=== PATIENT | female | born 1990 | race Native Hawaiian/Other Pacific Islander ===

== ENCOUNTER 2021-05-08 20:47 | Emergency (ER) | payer OTHER ==
[2021-05-08 21:49] VITALS: BP 109/74; PULSE 80; RESP 16; TEMP 97.9
[2021-05-08] MEDS ORDERED: KETOROLAC 30 MG/ML 1 ML VIAL IM STA (22:35)
[2021-05-08] MEDS ORDERED: ORPHENADRINE 30 MG/ML 2 ML VIAL IM STA (22:36)
--- NOTE | 2021-05-08 22:42 | ED ---
General Adult HPI - General Chief complaint: Back Pain/Injury Stated complaint: Lower back, Cant walk Time Seen by Provider: 05/08/21 22:21 Source: patient, RN notes reviewed Mode of arrival: ambulatory Limitations: no limitations - History of Present Illness Initial comments: This is a 31-year-old well-appearing well-nourished female that presents to the emergency room with complaints of low back pain that radiates down her left leg. Patient states that she suffered a slip and fall at work back in 2007 and she had sought physical therapy. She did not have any fractures at that time. She states that she worsened her back pain after her hysterectomy in September. Has been seeing a chiropractor once every few months. She states that she went back to the chiropractor last week for worsening low back pain and since Sunday she has had difficulty ambulating complaining of left leg numbness and tingling with burning shooting pain down the left leg. She states that at times it shoots up into her back up to her neck. She denies any injuries or falls. She denies any fevers. She denies any bowel or bladder incontinence -: days(s) (5) Location: back (lower), left, lower extremity Severity scale (1-10): 8 Quality: burning, sharp, constant, other (numbness and tingling) Consistency: constant Improves with: none Worsens with: movement Associated Symptoms: denies other symptoms Treatments Prior to Arrival: other (tylenol , chiropractor) - Related Data Home Medications Medication Instructions Recorded Confirmed Vit No.124/Iron/Folic 1 each PO DAILY 10/07/14 10/07/14 [ Vitamin Tablet] Previous Rx's Medication Instructions Recorded Acetaminophen-Codeine 300-30mg 2 each PO Q4HR PRN #30 tab 03/28/15 [Tylenol w/codeine #3] Ibuprofen [Motrin] 600 mg PO Q6HR PRN #30 tab 03/28/15 Cyclobenzaprine [Flexeril] 10 mg PO TID 7 Days #21 tab 05/08/21 Ibuprofen [Motrin] 600 mg PO Q8HR PRN #30 tab 05/08/21 Allergies Allergy/AdvReac Type Severity Reaction Status Date / Time latex AdvReac Rash/Hives Verified 05/08/21 21:46 Review of Systems ROS Statement: Those systems with pertinent positive or pertinent negative responses have been documented in the HPI. ROS Other: All systems not noted in ROS Statement are negative. Past Medical History Past Medical History: No Reported History Additional Past Medical History / Comment(s): Obstetric history: First was a vaginal delivery, 6#11oz at 39 weeks. This is her second and she has had care with me since 8 weeks. O+, abs neg, RUb Imm, RPR NR, Hep B neg, toxo neg, HIV NR. normal anatomy US. normal 1hr GTT, and neg GBS. History of Any Multi-Drug Resistant Organisms: None Reported Past Surgical History: Cholecystectomy, Hysterectomy Additional Past Surgical History / Comment(s): [place] teeth Past Anesthesia/Blood Transfusion Reactions: No Reported Reaction Past Psychological History: No Psychological Hx Reported Smoking Status: Never smoker Past Alcohol Use History: None Reported Past Drug Use History: None Reported - Past Family History Mother Family Medical History: No Reported History Additional Family Medical History / Comment(s): pt has no knowledge of family history General Exam Limitations: no limitations General appearance: alert, in no apparent distress Head exam: Present: atraumatic, normocephalic, normal inspection Eye exam: Present: normal appearance, EOMI ENT exam: Present: normal exam, normal oropharynx, mucous membranes moist Neck exam: Present: normal inspection, full ROM. Absent: tenderness, meningismus, lymphadenopathy Respiratory exam: Present: normal lung sounds bilaterally. Absent: respiratory distress, wheezes, rales, rhonchi, stridor Cardiovascular Exam: Present: regular rate, normal rhythm, normal heart sounds. Absent: systolic murmur, diastolic murmur, rubs, gallop, clicks GI/Abdominal exam: Present: soft, normal bowel sounds. Absent: distended, tenderness, guarding, rebound, rigid Extremities exam: Present: normal inspection, normal capillary refill. Absent: tenderness, pedal edema, joint swelling, calf tenderness Left Hip exam: Present: tenderness. Absent: full ROM, swelling, laceration, ecchymosis, erythema, external rotation, internal rotation Knee exam: Present: normal inspection, full knee extension (Held in flexion for position of comfort). Absent: tenderness, swelling, deformity, erythema, effusion Lower Leg exam: Present: normal inspection. Absent: tenderness Ankle exam: Absent: tenderness Foot/Toe exam: Absent: tenderness Neurovascular tendon exam: Absent: no vascular compromise, abnormal cap refill, extremity cold to touch, pallor, foot drop Gait: observed and limited by pain Back exam: Present: normal inspection, tenderness (Left lower back). Absent: CVA tenderness (R), CVA tenderness (L), paraspinal tenderness, vertebral tenderness, rash noted Expanded Back exam: Absent: saddle anesthesia Back exam: Positive Straight Leg Raise: Left, Right Neurological exam: Present: alert, oriented X3 Psychiatric exam: Present: normal affect, normal mood Skin exam: Present: warm, dry, intact, normal color. Absent: rash, cyanosis, diaphoretic Course Vital Signs 05/08/21 21:46 Temperature 97.9 F Pulse Rate 80 Respiratory 16 Rate Blood Pressure 109/74 O2 Sat by Pulse 98 Oximetry Medical Decision Making - Medical Decision Making Well-appearing 31-year-old female presents to the emergency room with chronic back pain. Patient states that she has had chronic back pain since 2007 after a slip and fall at work. She has received physical therapy in the past. She states that he went to her chiropractor last week from manipulation and has since gotten worse. She states she drove herself to the emergency room today. She was able to ambulate to the bathroom to provide a urine specimen. Urinalysis clear infection. Patient has history of hysterectomy in September 2020. X-ray of the lumbar sacral spine shows normal spacing of the lumbar vertebra, no compression fractures, sacral iliac joints are intact. This is a normal lumbar spine exam. She denies any saddle anesthesia or incontinence of bowel or bladder. She does not have a fever, no history of cancer, denies any illicit drug use. She is nontoxic appearing. This is likely musculoskeletal pain. She was given Toradol and Norflex in the emergency room and prescribed Motrin and Flexeril for home. She is directed to follow up with her primary care doctor this week. Return to emergency room with any new or worsening symptoms. Case discussed with Dr. Campbell - Lab Data Lab Results 05/08/21 Range/Units 22:49 Urine Color Yellow Urine Appearance Clear (Clear) Urine pH 7.0 (5.0-8.0) Ur Specific [place] 1.019 (1.001-1.035) Urine Protein Negative (Negative) Urine Glucose (UA) Negative (Negative) Urine Ketones Negative (Negative) Urine Blood Negative (Negative) Urine Nitrite Negative (Negative) Urine Bilirubin Negative (Negative) Urine Urobilinogen 2.0 (<2.0) mg/dL Ur Leukocyte Esterase Negative (Negative) Disposition Clinical Impression: Back pain, Radiculopathy Disposition: HOME SELF-CARE Condition: Good Instructions (If sedation given, give patient instructions): Back Pain (ED), Lower Back Exercises (ED) Additional Instructions: Continue Tylenol and/or Motrin as needed for pain. You can use Flexeril as prescribed for muscle relaxer. You can also use [id number] icy hot, Biofreeze or other topical pain relievers. Follow-up with the primary care doctor this week for continuation of care and possible MRI. Return to the emergency room with any new or concerning symptoms including bowel or bladder incontinence or fevers. Prescriptions: Cyclobenzaprine [Flexeril] 10 mg PO TID 7 Days #21 tab Ibuprofen [Motrin] 600 mg PO Q8HR PRN #30 tab PRN Reason: Pain Is patient prescribed a controlled substance at d/c from ED?: No Referrals: Melissa Saunders MD [REFERRING] - 1-2 days Time of Disposition: 23:37
[2021-05-08 23:05] LABS: Appearance,Urine Clear (Clear); Bilirubin,Urine Negative (Negative); Blood,Urine Negative (Negative); Color,Urine Yellow; Glucose,Urine (UA) Negative (Negative); Ketones,Urine Negative (Negative); Leukocyte Esterase,Urine Negative (Negative); Nitrite,Urine Negative (Negative); Protein,Urine Negative (Negative); Specific Gravity,Urine 1.019 (1.001-1.035)
--- NOTE | 2021-05-08 23:09 | XR ---
EXAMINATION TYPE: XR lumbosacral spine min 4V DATE OF EXAM: 05/08/2021 COMPARISON: NONE HISTORY: Back pain TECHNIQUE: 5 views FINDINGS: Lumbar vertebra have normal spacing and alignment. Posterior elements are intact. There is no compression fracture. Sacroiliac joints are intact. IMPRESSION: Normal lumbar spine exam.
== END 2021-05-09 00:05 | disposition home or self-care (01) ==
LOC: EC 20:47
DX: M54.16 Radiculopathy, lumbar region (principal); Z91.040 Latex allergy status; Z21 Asymptomatic human immunodeficiency virus [HIV] infection status
CPT/HCPCS: 81003; 72110; 99283; 96372; J2360; J1885

== ENCOUNTER 2024-08-24 06:06 | Emergency (ER) | payer OTHER ==
[2024-08-24 06:12] VITALS: RESP 18
--- NOTE | 2024-08-24 06:27 | ED ---
General Adult HPI - General Chief complaint: Back Pain/Injury Stated complaint: abd pain back pain Time Seen by Provider: 08/24/24 06:10 Source: patient, RN notes reviewed Mode of arrival: ambulatory Limitations: no limitations - History of Present Illness Initial comments: 34-year-old female presents emerged from chief plaint of left flank pain. Patient states she had a sudden onset of pain this morning. She states nothing makes it feel better or feel worse. She has mild intermittent nausea without vomiting. Patient denies any chest pain shortness of breath she states she has no urinary symptoms no history of kidney stones. Patient states she has had a prior cholecystectomy, hysterectomy no recent surgery. - Related Data Home Medications Medication Instructions Recorded Confirmed Vit No.124/Iron/Folic 1 each PO DAILY 10/07/14 10/07/14 [ Vitamin Tablet] Previous Rx's Medication Instructions Recorded Acetaminophen-Codeine 300-30mg 2 each PO Q4HR PRN #30 tab 03/28/15 [Tylenol w/codeine #3] Ibuprofen [Motrin] 600 mg PO Q6HR PRN #30 tab 03/28/15 Cyclobenzaprine [Flexeril] 10 mg PO TID 7 Days #21 tab 05/08/21 Ibuprofen [Motrin] 600 mg PO Q8HR PRN #30 tab 05/08/21 Ketorolac [Toradol] 10 mg PO Q8HR #15 tab 08/24/24 Ondansetron Odt [Zofran Odt] 4 mg PO Q8HR PRN #10 tab 08/24/24 Tamsulosin [Flomax] 0.4 mg PO DAILY #7 cap 08/24/24 Allergies Allergy/AdvReac Type Severity Reaction Status Date / Time latex AdvReac Rash/Hives Verified 08/24/24 06:09 Review of Systems ROS Statement: Those systems with pertinent positive or pertinent negative responses have been documented in the HPI. ROS Other: All systems not noted in ROS Statement are negative. Past Medical History Past Medical History: No Reported History Additional Past Medical History / Comment(s): Obstetric history: First was a vaginal delivery, 6#11oz at 39 weeks. This is her second and she has had care with me since 8 weeks. O+, abs neg, RUb Imm, RPR NR, Hep B neg, toxo neg, HIV NR. normal anatomy US. normal 1hr GTT, and neg GBS. History of Any Multi-Drug Resistant Organisms: None Reported Past Surgical History: Cholecystectomy, Hysterectomy Additional Past Surgical History / Comment(s): [place] teeth Past Anesthesia/Blood Transfusion Reactions: No Reported Reaction Past Psychological History: No Psychological Hx Reported Smoking Status: Never smoker Past Alcohol Use History: None Reported Past Drug Use History: None Reported - Past Family History Mother Family Medical History: No Reported History Additional Family Medical History / Comment(s): pt has no knowledge of family history General Exam Limitations: no limitations General appearance: alert, in no apparent distress Head exam: Present: atraumatic, normocephalic, normal inspection Neck exam: Present: normal inspection, full ROM. Absent: tenderness, meningismus, lymphadenopathy Respiratory exam: Present: normal lung sounds bilaterally. Absent: respiratory distress, wheezes, rales, rhonchi, stridor Cardiovascular Exam: Present: regular rate, normal rhythm, normal heart sounds. Absent: systolic murmur, diastolic murmur, rubs, gallop, clicks GI/Abdominal exam: Present: soft, normal bowel sounds. Absent: distended, tenderness, guarding, rebound, rigid Back exam: Absent: CVA tenderness (L) Neurological exam: Present: alert Course Vital Signs 08/24/24 06:09 Temperature 98.4 F Pulse Rate 76 Respiratory 18 Rate Blood Pressure 134/65 O2 Sat by Pulse 100 Oximetry Medical Decision Making - Medical Decision Making Was pt. sent in by a medical professional or institution (, PA, APPLIED MATHEMATICIAN, urgent care, hospital, or senior care...) When possible be specific @ -No Did you speak to anyone other than the patient for history (EMS, parent, family, police, friend...)? What history was obtained from this source @ -No Did you review nursing and triage notes (agree or disagree)? Why? @ -I reviewed and agree with nursing and triage notes Were old charts reviewed (outside hosp., previous admission, EMS record, old EKG, old radiological studies, urgent care reports/EKG's, senior care records)? Report findings @ -No old charts were reviewed Differential Diagnosis (chest pain, altered mental status, abdominal pain women, abdominal pain men, vaginal bleeding, weakness, fever, dyspnea, syncope, headache, dizziness, GI bleed, back pain, seizure, CVA, palpatations, mental health, musculoskeletal)? @ -Differential Abdominal Pain Women: Appendicitis, Cholecystitis, diverticulosis, ischemic bowel, pancreatitis, hepatitis, UTI, gastroenteritis, AAA, incarcerated hernia, bowel obstruction, constipation, inflammatory bowel, hepatitis, peptic ulcer disease, splenic infarction, perforated viscus, vulvitis, ovarian torsion, PID, kidney stone, placenta abruption, this is not meant to be an all-inclusive list EKG interpreted by me (3pts min.). @ -As above X-rays interpreted by me (1pt min.). @ -None done CT interpreted by me (1pt min.). @ -[CT abdomen pelvis showing 2 ureteral calculus on the left, mild hydronephrosis. U/S interpreted by me (1pt. min.). @ -None done What testing was considered but not performed or refused? (CT, X-rays, U/S, labs )? Why? @ -None What meds were considered but not given or refused? Why? @ -None Did you discuss the management of the patient with other professionals (professionals i.e. , PA, APPLIED MATHEMATICIAN, lab, RT, psych nurse, social work professor, furnace mechanic, teacher, community service officer, case making machine operator)? Give summary @ -No Was smoking cessation discussed for >3mins.? @ -No Was critical care preformed (if so, how long)? @ -No Were there social determinants of health that impacted care today? How? (Homelessness, low income, unemployed, alcoholism, drug addiction, transportation, low edu. Level, literacy, decrease access to med. care, shelter, rehab)? @ -No Was there de-escalation of care discussed even if they declined (Discuss DNR or withdrawal of care, Hospice)? DNR status @ -No What co-morbidities impacted this encounter? (DM, HTN, Smoking, COPD, CAD, Cancer, CVA, ARF, Chemo, Hep., AIDS, mental health diagnosis, sleep apnea, morbid obesity)? @ -None Was patient admitted / discharged? Hospital course, mention meds given and route, prescriptions, significant lab abnormalities, going to OR and other pertinent info. @ -Discharge patient states she is currently symptom-free. Patient is tolerating oral intake. Patient will be discharged with analgesics, antiemetics and follow-up with urology return parameters discussed. Undiagnosed new problem with uncertain prognosis? @ -No Drug Therapy requiring intensive monitoring for toxicity (Heparin, Nitro, Insulin, Cardizem)? @ -No Were any procedures done? @ -No Diagnosis/symptom? @ -Left ureteral calculus Acute, or Chronic, or Acute on Chronic? @Acute Uncomplicated (without systemic symptoms) or Complicated (systemic symptoms)? @ -Uncomplicated Side effects of treatment? @ -No Exacerbation, Progression, or Severe Exacerbation? @ -No Poses a threat to life or bodily function? How? (Chest pain, USA, PA, pneumonia, PE, COPD, DKA, ARF, appy, cholecystitis, CVA, Diverticulitis, Homicidal, Suicidal, threat to staff... and all critical care pts) @ -No - Lab Data Result diagrams: 08/24/24 06:30 08/24/24 06:30 Lab Results 08/24/24 08/24/24 08/24/24 Range/Units 06:30 06:30 07:13 WBC 10.1 (3.8-10.6) k/uL RBC 4.89 (3.80-5.40) m/uL Hgb 13.4 (11.4-16.0) gm/dL Hct 42.1 (34.0-46.0) % MCV 86.0 (80.0-100.0) fL MCH 27.3 (25.0-35.0) pg MCHC 31.7 (31.0-37.0) g/dL RDW 13.1 (11.5-15.5) % Plt Count 390 (150-450) k/uL MPV 6.9 Neutrophils % 52 % Lymphocytes % 41 % Monocytes % 3 % Eosinophils % 2 % Basophils % 1 % Neutrophils # 5.2 (1.3-7.7) k/uL Lymphocytes # 4.2 (1.0-4.8) k/uL Monocytes # 0.3 (0-1.0) k/uL Eosinophils # 0.2 (0-0.7) k/uL Basophils # 0.1 (0-0.2) k/uL Sodium 136 L (137-145) mmol/L Potassium 3.8 (3.5-5.1) mmol/L Chloride 105 (98-107) mmol/L Carbon Dioxide 21 L (22-30) mmol/L Anion Gap 10 mmol/L BUN 10 (7-17) mg/dL Creatinine 0.52 (0.52-1.04) mg/dL Est GFR (CKD-EPI)AfAm >90 (>60 ml/min/1.73 sqM) Est GFR (CKD-EPI)NonAf >90 (>60 ml/min/1.73 sqM) Glucose 107 H (74-99) mg/dL Calcium 9.1 (8.4-10.2) mg/dL Total Bilirubin 0.5 (0.2-1.3) mg/dL AST 24 (14-36) U/L ALT 30 (4-34) U/L Alkaline Phosphatase 106 (38-126) U/L Total Protein 7.3 (6.3-8.2) g/dL Albumin 4.3 (3.5-5.0) g/dL Lipase 130 (23-300) U/L Urine Color Yellow Urine Appearance Cloudy H (Clear) Urine pH 5.5 (5.0-8.0) Ur Specific [place] 1.017 (1.001-1.035) Urine Protein Trace H (Negative) Urine Glucose (UA) Negative (Negative) Urine Ketones Negative (Negative) Urine Blood Large H (Negative) Urine Nitrite Negative (Negative) Urine Bilirubin Negative (Negative) Urine Urobilinogen <2.0 (<2.0) mg/dL Ur Leukocyte Esterase Negative (Negative) Urine RBC >182 H (0-5) /hpf Urine WBC 3 (0-5) /hpf Ur Squamous Epith Cells 3 (0-4) /hpf Urine Bacteria Rare H (None) /hpf Urine Mucus Few H (None) /hpf Disposition Clinical Impression: Urethral calculus Disposition: HOME SELF-CARE Condition: Stable Instructions (If sedation given, give patient instructions): Kidney Stones (ED) Additional Instructions: Please return to the Emergency Department if symptoms worsen or any other concerns. Prescriptions: Tamsulosin [Flomax] 0.4 mg PO DAILY #7 cap Ketorolac [Toradol] 10 mg PO Q8HR #15 tab Ondansetron Odt [Zofran Odt] 4 mg PO Q8HR PRN #10 tab PRN Reason: Nausea Is patient prescribed a controlled substance at d/c from ED?: No Referrals: Virgilio Ohara DO [Primary Care Provider] - 1-2 days Leif Alfonso MD [STAFF PHYSICIAN] - 1-2 days Time of Disposition: 07:49
[2024-08-24 06:38] LABS: Basophils # (A) 0.1 k/uL (0-0.2); Basophils % (A) 1 %; Eosinophils # (A) 0.2 k/uL (0-0.7); Eosinophils % (A) 2 %; HCT 42.1 % (34.0-46.0); HGB 13.4 gm/dL (11.4-16.0); Lymphocytes # (A) 4.2 k/uL (1.0-4.8); Lymphocytes % (A) 41 %; MCH 27.3 pg (25.0-35.0); MCHC 31.7 g/dL (31.0-37.0); Mean Platelet Volume 6.9; Monocytes # (A) 0.3 k/uL (0-1.0); Monocytes % (A) 3 %; Neutrophils # (A) 5.2 k/uL (1.3-7.7); Neutrophils % (A) 52 %; Platelet Count 390 k/uL (150-450); RBC 4.89 m/uL (3.80-5.40); RDW 13.1 % (11.5-15.5); WBC 10.1 k/uL (3.8-10.6)
[2024-08-24] MEDS: SODIUM CHLORIDE 0.9% 1,000 ML IV ONE (06:50)
[2024-08-24] MEDS: ONDANSETRON 4 MG/2 ML VIAL IVP STA (06:52)
[2024-08-24] MEDS: HYDROmorphone 0.5 MG/0.5 ML SYRINGE IVP STA (06:53)
[2024-08-24 06:54] LABS: ALT 30 U/L (4-34); AST 24 U/L (14-36); African American GFR (CKD) >90 (>60 ml/min/1.73 sqM); Albumin 4.3 g/dL (3.5-5.0); Alkaline Phosphatase 106 U/L (38-126); Anion Gap 10 mmol/L; Blood Urea Nitrogen 10 mg/dL (7-17); Calcium 9.1 mg/dL (8.4-10.2); Carbon Dioxide 21 mmol/L (22-30); Chloride 105 mmol/L (98-107); Glucose 107 mg/dL (74-99); Lipase 130 U/L (23-300); Non-African American GFR(CKD) >90 (>60 ml/min/1.73 sqM); Potassium 3.8 mmol/L (3.5-5.1); Sodium 136 mmol/L (137-145); Total Bilirubin 0.5 mg/dL (0.2-1.3); Total Protein 7.3 g/dL (6.3-8.2)
[2024-08-24] MEDS: KETOROLAC 15 MG/ML 1 ML VIAL IVP STA (06:55)
--- NOTE | 2024-08-24 07:15 | CT ---
EXAMINATION TYPE: CT abdomen pelvis wo con DATE OF EXAM: 08/24/2024 COMPARISON: None CLINICAL INDICATION: Female, 34 years old with history of abdominal pain -left; PHH, left flank pain TECHNIQUE: CT scan of the abdomen and pelvis is performed without oral or IV contrast. CT DLP: 420.[address] CTDI: mGy Automated exposure control for dose reduction was used. FINDINGS: Within the limitations of a non-contrast study, the following observations are made. The lungs are clear. There is surgical absence of the gallbladder. There is no biliary ductal dilatation. There is no organomegaly of the liver, pancreas, spleen or adrenal glands. There is a suggestion of mild left hydronephrosis. There are 2 stones in the distal left ureter the l argest of which is approximately 6.3 mm. The more proximal stone within the distal ureters approximat ramon 5 mm. The caliber of the abdominal aorta is normal and there is no retroperitoneal adenopathy or hemorrhage . The bowel loops are normal in caliber is no evidence of obstruction. No inflammatory changes are iden tified in the mesentery and there is no free intraperitoneal air or fluid. There is no pelvic mass, free fluid, abscess or adenopathy. There is surgical absence of the uterus. The osseous structures and soft tissues are unremarkable. IMPRESSION: Mild left hydronephrosis secondary to 2 calculi within the distal left ureter at least 5 to 6 cm prox imal to the left UVJ. The largest calculus is the more distal calculus which measures approximate 6 m m. [facility], , 08/24/2024 7:12 AM
[2024-08-24 07:44] LABS: Appearance,Urine Cloudy (Clear); Bacteria,Urine Rare /hpf; Bilirubin,Urine Negative (Negative); Blood,Urine Large (Negative); Color,Urine Yellow; Glucose,Urine (UA) Negative (Negative); Ketones,Urine Negative (Negative); Leukocyte Esterase,Urine Negative (Negative); Mucus,Urine Few /hpf; Nitrite,Urine Negative (Negative); PH, Urine 5.5 (5.0-8.0); Protein,Urine Trace (Negative); RBC,Urine >182 /hpf (0-5); Specific Gravity,Urine 1.017 (1.001-1.035); Squamous Epithelial Cell,Urine 3 /hpf (0-4); Urobilinogen,Urine <2.0 mg/dL (<2.0); WBC,Urine 3 /hpf (0-5)
[2024-08-24] MEDS: ACET/COD 300 MG/30 MG STARTER PACK 6 TAB BTL PO STA (08:01)
[2024-08-24 08:08] VITALS: BP 116/71; PULSE 77; TEMP 97.5
== END 2024-08-24 08:08 | disposition home or self-care (01) ==
LOC: EC 06:06
DX: N13.2 Hydronephrosis with renal and ureteral calculous obstruction (principal)
CPT/HCPCS: 36415; 80053; 83690; 85025; 81001; 74176; 99284; 96374; 96375 ×2; 96361; J2405; J1885; J1171

== ENCOUNTER → 2024-12-10 | Outpatient (CLI) | payer OTHER ==
--- NOTE | 2024-12-11 08:02 | US ---
EXAMINATION TYPE: US transvaginal DATE OF EXAM: 12/10/2024 COMPARISON: CT(08/24/2024) CLINICAL INDICATION: Female, 34 years old with history of R10.2 PELVIC AND PERINEAL PAIN; Hysterectom y, Lt oophorectomy, rt pelvic pain couple months, worse within last couple of weeks TECHNIQUE: Transvaginal (TV). Transabdominal grayscale sonographic images of the pelvis were acquired. Transvaginal sonographic im ages were medically necessary to better assess the following anatomy: Doppler imaging: Color Doppler Images were obtained. FINDINGS: EXAM MEASUREMENTS: Uterus: Surgically absent cm Right Ovary: ?1.9x1.3x1.3 cm Left Ovary: Surgically absent very limited exam due to overlying bowel/gas 1. Uterus: Surgically absent 2. Endometrium: Surgically absent 3. Right Ovary: not confidentially seen due to overlying bowel ?area measured within rt adnexa 4. Left Ovary: Surgically absent 5. Bilateral Adnexa: ?small amount of FF seen within rt adnexa IMPRESSION: 1. Small amount of free fluid right adnexal region. 2. Postsurgical changes. O-RADS 2021 [email or web address] [facility], , 12/11/2024 8:00 AM
== END | disposition home or self-care (01) ==
LOC: RADUSWWP 12:15
PROVIDERS: ATTEND Family Medicine
DX: N80.9 Endometriosis, unspecified (principal); Z98.890 Other specified postprocedural states
CPT/HCPCS: 76830